=== PATIENT | male | born 1955 | race Caucasian/White ===

== ENCOUNTER 2020-09-19 02:11 | Inpatient (IN) | payer MEDICARE, MEDICAID ==
[~2020-09-19] VITALS: Ht 170.2 cm; Wt 90.5 kg
[2020-09-19] MEDS ORDERED: ATORVASTATIN CA80 MG PO (04:50)
[2020-09-19] MEDS ORDERED: LASIX TAB 20 MG20 MG PO (04:51)
[2020-09-19] MEDS ORDERED: METOPROLOL SUCC50 MG PO (04:52)
[2020-09-19] MEDS ORDERED: TRELEGY ELLIPT1 EACH IH (04:53)
[2020-09-19] MEDS ORDERED: SPIRIVA18 MCG INH (04:55)
[2020-09-19] MEDS ORDERED: FINASTERIDE5 MG PO (04:56)
[2020-09-19] MEDS ORDERED: ISOSORBIDE MONO30 MG PO (04:57)
[2020-09-19] MEDS ORDERED: PERSANTINE PO (04:58)
[2020-09-19] MEDS ORDERED: VENTOLIN HFA 66.7 GM INH (05:01)
[2020-09-19] MEDS ORDERED: ASPIRIN81 MG PO (05:02)
[2020-09-19] MEDS ORDERED: POTASSIUM CHLO10 ME1 PO (05:02)
[2020-09-19 07:14] LABS: HEMOGLOBIN 10.5 gm/dl (14.0-17.5); RED BLOOD COUNT 3.69 M/UL (4.20-5.50); WHITE BLOOD COUNT 7.7 K/UL (4.5-11.0)
[2020-09-19 07:29] LABS: BUN/CREATININE RATIO 26 (0-10)
[2020-09-19 10:43] LABS: BORDETELLA PARAPERTUSSIS Not Detected (Not Detectd); BORDETELLA PERTUSSIS Not Detected (Not Detectd); CHLAMYDIA PNEUMONIAE Not Detected (Not Detectd); CORONAVIRUS HKU1 Not Detected (Not Detectd); CORONAVIRUS NL63 Not Detected (Not Detectd); CORONAVIRUS OC43 Not Detected (Not Detectd); CORONOAVIRUS 229E Not Detected (Not Detectd); HUMAN METAPNEUMOVIRUS Not Detected (Not Detectd); HUMAN RHINOVIRUS/ENTEROVIRUS Not Detected (Not Detectd); INFLUENZA A Not Detected (Not Detectd); INFLUENZA B Not Detected (Not Detectd); MYCOPLASMA PNEUMONIAE Not Detected (Not Detectd); PARAINFLUENZA VIRUS 1 Not Detected (Not Detectd); PARAINFLUENZA VIRUS 2 Not Detected (Not Detectd); PARAINFLUENZA VIRUS 3 Not Detected (Not Detectd); PARAINFLUENZA VIRUS 4 Not Detected (Not Detectd); RESPIRATORY SYNCYTIAL VIRUS Not Detected (Not Detectd)
[2020-09-19 12:01] LABS: SARS-CoV-2 NOT DETECTED (Not Detectd)
[2020-09-20 03:35] LABS: HEMOGLOBIN 9.2 gm/dl (14.0-17.5); RED BLOOD COUNT 3.25 M/UL (4.20-5.50); WHITE BLOOD COUNT 10.2 K/UL (4.5-11.0)
[2020-09-20 03:54] LABS: BUN/CREATININE RATIO 33 (0-10)
[2020-09-21 04:29] LABS: HEMOGLOBIN 9.7 gm/dl (14.0-17.5); RED BLOOD COUNT 3.3 M/UL (4.20-5.50)
[2020-09-21 04:30] LABS: WHITE BLOOD COUNT 7.4 K/UL (4.5-11.0)
[2020-09-21 04:55] LABS: BUN/CREATININE RATIO 34 (0-10)
[2020-09-21 15:11] LABS: ORGANISM ID Not indicated. (.); SPECIMEN SOURCE Urine (.); STREPTOCOCCUS PNEUMONIAE AG Negative (Negative)
--- NOTE | 2020-09-21 20:02 | NUR ---
RESTING. NO S/S DISTRESS OR DISCOMFORT. OCCASIONALLY PULLS OFF BLOOD PRESSURE CUFF AND PULLS AT MEDICAL EQUIPMENT. PLEASANTLY CONFUSED BUT REORIENTS EASILY.
--- NOTE | 2020-09-22 00:23 | NUR ---
PATIENT RESTLESS . HAS NASAL CANNULA IN HIS MOUTH, 02 SATS 72% . PLACED ON BIPAP WITH PREVIOUS SETTINGS OF 21/7 40% . RT NOTIFIED.
[2020-09-22 05:30] LABS: HEMOGLOBIN 9.9 gm/dl (14.0-17.5); RED BLOOD COUNT 3.36 M/UL (4.20-5.50); WHITE BLOOD COUNT 7.2 K/UL (4.5-11.0)
[2020-09-22 05:56] LABS: BUN/CREATININE RATIO 35 (0-10)
--- NOTE | 2020-09-22 16:10 | NUR ---
report called to Amna MARTINO. Pt going to [id number].
--- NOTE | 2020-09-22 23:26 | NUR ---
Patient needs to be on continous pulse ox due to the use of Bipap. Telemetry states they have no cord to send me.
[2020-09-23 04:16] LABS: HEMOGLOBIN 9.5 gm/dl (14.0-17.5); RED BLOOD COUNT 3.26 M/UL (4.20-5.50); WHITE BLOOD COUNT 5.9 K/UL (4.5-11.0)
[2020-09-23 04:47] LABS: BUN/CREATININE RATIO 33 (0-10)
[2020-09-24 05:43] LABS: HEMOGLOBIN 10.7 gm/dl (14.0-17.5)
[2020-09-24 05:44] LABS: RED BLOOD COUNT 3.63 M/UL (4.20-5.50); WHITE BLOOD COUNT 7.8 K/UL (4.5-11.0)
[2020-09-24 06:05] LABS: BUN/CREATININE RATIO 25 (0-10)
[2020-09-24] MEDS ORDERED: AUGMENTIN 875-1 EACH PO (11:34)
[2020-09-24] MEDS ORDERED: MEDROL DOSEPAK 24 MG PO (11:34)
== END 2020-09-24 13:35 | disposition home or self-care (01) | DRG 208 ==
LOC: CCU 04:31 → M/S 04:31
PROVIDERS: Family Medicine; ADMIT Internal Medicine
PROC: 5A1945Z Respiratory Ventilation, 24-96 Consecutive Hours (ICD-10-PCS; principal; 2020-09-19)
PROC: 0BH17EZ Insertion of Endotracheal Airway into Trachea, Via Natural or Artificial Opening (ICD-10-PCS; 2020-09-19)
DX: J96.21 Acute and chronic respiratory failure with hypoxia (principal); J18.9 Pneumonia, unspecified organism; G93.41 Metabolic encephalopathy; J44.1 Chronic obstructive pulmonary disease with (acute) exacerbation; J90 Pleural effusion, not elsewhere classified; E87.2 Acidosis; J44.0 Chronic obstructive pulmonary disease with (acute) lower respiratory infection; J60 Coalworker's pneumoconiosis; I71.4 Abdominal aortic aneurysm, without rupture; I73.9 Peripheral vascular disease, unspecified; N40.0 Benign prostatic hyperplasia without lower urinary tract symptoms; D53.9 Nutritional anemia, unspecified; Z20.822 Contact with and (suspected) exposure to COVID-19; E78.5 Hyperlipidemia, unspecified; I95.9 Hypotension, unspecified; J96.22 Acute and chronic respiratory failure with hypercapnia; R73.9 Hyperglycemia, unspecified; Z88.8 Allergy status to other drugs, medicaments and biological substances; Z99.81 Dependence on supplemental oxygen; Z72.0 Tobacco use
CPT/HCPCS: 36415; 36600; 71045; 71046; 80048; 80053; 80202; 82550; 82553; 82803; 83605; 83735; 83880; 84100; 84132; 84484; 85025; 86140; 87040; 87070; 87077; 87081; 87205; 87278; 87633; 87899; 92526; 92610; 94002; 94003; 94640; 94660; 94760; 97110-GP-CQ; 97116-GP-CQ; 97162; 97166; J1120; J1335; J1650; J1940; J1956; J2543; J2704; J2920; J3370; J7030; J7050; J7070

== ENCOUNTER 2021-03-16 20:28 | Emergency (ER) | payer MEDICARE, MEDICAID ==
[~2021-03-16 20:28] MED LIST: ASPIRIN81 MG PO; ATORVASTATIN CA80 MG PO; AUGMENTIN 875-1 EACH PO; FINASTERIDE5 MG PO; ISOSORBIDE MONO30 MG PO; LASIX TAB 20 MG20 MG PO; MEDROL DOSEPAK 24 MG PO; METOPROLOL SUCC50 MG PO; PERSANTINE PO; POTASSIUM CHLO10 ME1 PO; SPIRIVA18 MCG INH; TRELEGY ELLIPT1 EACH IH; VENTOLIN HFA 66.7 GM INH
[2021-03-16 22:26] LABS: RED BLOOD COUNT 4.04 M/UL (4.20-5.50); WHITE BLOOD COUNT 13.1 K/UL (4.5-11.0)
[2021-03-16 22:56] LABS: BUN/CREATININE RATIO 24 (0-10)
== END 2021-03-17 02:03 | disposition left against medical advice (07) ==
LOC: ER1 20:28 → CDU 03-17 00:04 → ER1 03-17 00:04
PROVIDERS: Family Medicine
DX: J44.1 Chronic obstructive pulmonary disease with (acute) exacerbation (principal); E78.5 Hyperlipidemia, unspecified; Z20.822 Contact with and (suspected) exposure to COVID-19; F17.200 Nicotine dependence, unspecified, uncomplicated
CPT/HCPCS: 0240U; 36600; 71045; 80053; 81001; 82550; 82553; 82803; 83605; 83735; 83880; 84484; 85025; 85610; 87040; 94664; 96374; 99285; J2930

== ENCOUNTER 2021-03-20 22:23 | Emergency (ER) | payer BLACK LUNG, MEDICARE, MEDICAID ==
[2021-03-21 01:05] LABS: HEMOGLOBIN 10.1 gm/dl (14.0-17.5); RED BLOOD COUNT 3.45 M/UL (4.20-5.50); WHITE BLOOD COUNT 10.1 K/UL (4.5-11.0)
[2021-03-21 01:33] LABS: BUN/CREATININE RATIO 26 (0-10)
[2021-03-21] MEDS ORDERED: PREDNISONE 20 M20 MG PO (03:37)
[2021-03-21] MEDS ORDERED: DOXYCYCLINE HY100 MG PO (03:37)
== END 2021-03-21 15:04 | disposition left against medical advice (07) ==
LOC: ER1 22:23 → CDU 03-21 03:08
PROVIDERS: Physician Assistant Medical
DX: J44.1 Chronic obstructive pulmonary disease with (acute) exacerbation (principal); I10 Essential (primary) hypertension; Z88.8 Allergy status to other drugs, medicaments and biological substances; J96.92 Respiratory failure, unspecified with hypercapnia; F17.200 Nicotine dependence, unspecified, uncomplicated
CPT/HCPCS: 36600; 80053; 82550; 82553; 82803; 83874; 83880; 84484; 85025; 93005; 94640; 94664; 94760; 96374; 99285; J0696; J2930; Q9967